=== PATIENT | male | born 1970 | race Caucasian/White ===

== ENCOUNTER 2023-12-10 08:16 | Emergency (ER) | payer OTHER, MEDICAID, SELFPAY ==
[2023-12-10 08:18] VITALS: BP 104/74; PULSE 59; RESP 16; TEMP 36.6; O2SAT 100; BMI 21.1
--- NOTE | 2023-12-10 09:02 | EKG12_ITS ---
Test Reason : CP Blood Pressure : / mmHG Vent. Rate : 053 BPM Atrial Rate : 053 BPM P-R Int : 144 ms QRS Dur : 096 ms QT Int : 426 ms P-R-T Axes : 047 063 072 degrees QTc Int : 399 ms Sinus bradycardia Otherwise normal ECG Confirmed by Peter Ash ([id number]), research editor DARRIAN DON ([id number]) on 12/13/2023 2:01:47 PM Referred By: Confirmed By:Peter Ash
--- NOTE | 2023-12-10 09:15 | RAD_ITS ---
STUDY: X-RAY CHEST REASON FOR EXAM: Male, 53 years old. Chest pain TECHNIQUE: Single AP portable view of the chest. COMPARISON: None. FINDINGS: EKG electrodes are seen. The lungs are clear and expanded. There is no demonstrated pleural abnormality. Normal size heart. Normal mediastinum and kesha. Normal visualized pulmonary arteries. Normal visualized aortic arch and descending thoracic aorta. Normal visualized thoracic spine. Prior fusion in the lower cervical spine. There is no demonstrated abnormality of the visualized soft tissue structures of the upper abdomen. RAD/Chest 1 View (Portable) IMPRESSION: Normal x-ray examination of the chest. Electronically Signed: Eugene Marie MD at 9:42 EDT ,
[2023-12-10 09:17] VITALS: BP 111/79; PULSE 52; RESP 17; O2SAT 97
[2023-12-10 09:17] LABS: Absolute Neutrophil Count 3.7 X10^3/uL (2.0-7.7); Basophil# 0.04 X10^3/uL; Basophil% 0.7 % (0-1); Eosinophil# 0.27 X10^3/uL; Eosinophils% 4.5 % (0-5); Hematocrit 40.9 % (40-54); Hemoglobin 13.9 g/dL (13.0-16.5); Mean Corpuscular Hgb 31.6 pg (27.0-32.0); Mean Platelet Vol. 9.6 fl (6.2-12.0); Monocyte# 0.44 X10^3/uL; Monocyte% 7.3 % (0-10); NRBC Flagged by Analyzer 0 % (0-5); Neutrophil # 3.74 X10^3/uL (2.7-7.7); Neutrophil % 62.3 % (47-70); Platelet Count 218 K/mm3 (150-450); RBC Distribution Width CV 13.6 % (11.6-14.6); RBC Distribution Width SD 46.5 fl (35.1-43.9)
--- NOTE | 2023-12-10 09:26 | ED.VIS.CHEST ---
HPI History of Present Illness Chief Complaint: Chest Pain Informant: patient Onset/Context/Timing Onset: Today and Hours Activity at onset: gradual Timing: Continuous Quality: Positive for Dull Location: Left Chest Current Severity: Mild Maximum Severity: Mild Worsened By: Nothing Relieved By: Nothing Associated Symptoms: Negative for Nausea, Vomiting, Diaphoresis, Dyspnea, Cough, Fever, Lightheadedness, Acid Reflux or Palpitations Narrative Narrative: 53-year-old male history of prior carcinoid and prior DVT for which she was on Coumadin and then was taken off the medication. He was at work today he got left arm numbness and left-sided chest pain this began around 7 AM. The pain is almost resolved. No cardiac history. No history of PE. No recent exertional chest pain. No dyspnea. No hemoptysis. Nothing particular makes the pain better or worse. Prior Similar Symptoms: No Recent Illness/Hospitalization: No CVD Risk Factors: Negative for Hypertension, Diabetes or Hypercholesterolemia PE Risk Factors: Positive for Prior DVT or PE and Cancer; Negative for Recent Travel/Surgery, Recent Immobilization or OCP + Smoking + >/=35 TAD Risk Factors: Negative for Marfan's Syndrome, Hypertension or Family History PFSH PFSH Allergy/AdvReac Type Severity Reaction Status Date / Time No Known Allergies Allergy Verified 12/10/23 08:18 Social History Smoking Status: Current every day smoker tobacco type: cigarettes ROS ROS ED ROS Narrative Denies recent illness. Chest pain today. Review of Systems ROS Unobtainable: Denies due to encephalopathy Constitutional Constitutional ED: Denies chills or fever(s) Eyes Eyes: Reports none ENT ENT ED: Reports ear pain Cardiovascular Cardiovascular: Reports as per HPI and chest pain; Denies palpitations or racing heartbeat Respiratory/Chest Respiratory/Chest: Denies cough, dyspnea or dyspnea on exertion Gastrointestinal Gastrointestinal: Denies abdominal pain, constipation, diarrhea, melena, nausea or vomiting Genitourinary Genitourinary ED: Denies dysuria or hematuria Musculoskeletal Musculoskeletal: Denies arthralgias or back pain Integumentary Denies abscess or Abrasions Neurologic Neurologic: Denies headache(s) Psychiatric Psychiatric: Denies anxiety or depression Endocrine Endocrinology: Denies cold intolerance, heat intolerance, polydipsia, polyphagia or polyuria Hematologic/Lymphatic Hematologic/Lymphatic: Denies easy bleeding, easy bruising or lymphadenopathy Allergic/Immunologic Allergic/Immunologic ED: Denies mouth swelling, tongue swelling or urticaria EXAM Physical Exam Narrative Exam Narrative: Well-appearing 53-year-old male vital signs stable afebrile. Pulse ox 5% on room air no signs hypoxia. No distress. HEENT exam unremarkable. Neck nontender. Lungs clear to auscultation bilateral. Heart regular rhythm no murmur rate about 60. Chest wall and ribs nontender. Abdomen soft nontender. Moving all 4 extremities. Calves are nontender without edema or cords. Equal symmetrical radial pulses. Normal marketing operations consultant strength. Normal range of motion. Nontender. No deformity. Neurologically awake alert no focal motor deficits. Back nontender. Const Vital Signs: 12/10/23 08:18 12/10/23 09:02 12/10/23 09:17 Temperature 97.8 F Temperature Source Temporal Pulse Rate 59 L 52 L Respiratory Rate 16 17 Blood Pressure 104/74 111/79 Blood Pressure Mean 84 89 Pulse Ox 100 97 Oxygen Delivery Method Room Air Room Air Room Air 12/10/23 10:00 12/10/23 11:00 12/10/23 11:00 Temperature Temperature Source Pulse Rate 57 L 51 L 58 L Respiratory Rate 18 17 18 Blood Pressure 108/88 H 133/87 H Blood Pressure Mean 94 102 Pulse Ox 97 97 97 Oxygen Delivery Method Room Air Room Air Room Air Positive well nourished and well developed; Negative for obese, cachectic, contractures or unkempt General Appearance ED: well developed and NAD; Negative for unkempt, cachectic, contractures or pallor Nutritional Appearance: Negative for cachectic or obese HEENT Reports moist mucous membranes; Denies dry mucous membranes normocephalic and atraumatic; Negative for trauma or tenderness Mouth ED: No dry mucous membranes Mouth: No dry mucous membranes Eyes PERRL and EOMs intact bilaterally General Eye ED: Negative for pale conjunctiva, scleral icterus or other Neck no lymphadenopathy, supple and no JVD General: Negative for tenderness Chest Wall inspection of chest normal and palpation of chest normal Chest: Negative for tenderness Resp normal respiratory effort and clear to auscultation bilaterally Effort and Inspection: Negative for respiratory distress Auscultation: Negative for rales, rhonchi, wheezes or diminished lung sounds Cardio regular rate, regular rhythm, S1 normal heart sound, S2 normal heart sound and no murmurs Rate: Negative for bradycardia or tachycardic Rhythm: Negative for abnormal rhythm Peripheral Pulses: pulses 2+ throughout GI normal to inspection, nondistended, normoactive bowel sounds, soft to palpation, non-tender, non-distended and no masses Auscultation: Negative for hyperactive bowel sounds Palpation: Negative for splenomegaly Back/Spine no CVA tenderness and no thoracic nor lumbar tenderness General Back: Negative for CVA tenderness Cervical Spine: Negative for cervical spine tenderness Extremity normal to inspection General Extremety ED: Negative for edema, pulses abnormal or tenderness General Extremity: Negative for edema or pulses abnormal Neuro oriented x3, CN's II-XII intact bilaterally and no sensory deficits noted Sensorium / Orientation: awake, alert, oriented to person, oriented to place and oriented to time; Negative for confused, lethargic or stuporous Motor Exam: strength 5/5 throughout; Negative for general weakness or strength abnormal Psych mental status grossly normal Appearance: Negative for unkempt Attitude: No agitated Mood & Affect: Negative for depressed, anxious or tearful Skin no rashes or lesions noted and no wounds General Skin Exam: Negative for jaundice, pallor or other Rashes: No rashes noted Trauma: Negative for abrasion or laceration MDM MDM MDM Narrative Medical decision making narrative: Well-appearing 53-year-old male with left-sided chest discomfort. Exam benign. Not reproducible. Cardiac workup. His initial EKG is unremarkable. Patient also had a prior history of DVTs with a D-dimer be obtained for possible PE. Repeat exam patient doing well at 11:32 AM. His initial labs, chest x-ray and EKG are unremarkable. Initial troponin is normal. As is his D-dimer. Awaiting his 2-hour troponin. Repeat exam patient doing well at 12:09 PM. He is comfortable being discharged home. Repeat exam is unchanged. We discussed all his test results. He has normal D-dimer and his 2 normal cardiac enzymes. Outpatient follow-up with his primary care physician. If he feels worse or starts developing exertional chest pain he needs to return. History & Record Review Discussion w/independent historian: Patient Additional record(s) reviewed:: Prior inpatient record, Prior outpatient record, Prior ED visit and Prior labs Lab Data Attestation: I reviewed the patient's lab results. Lab results narrative: CBC normal. White count of 6. H&H 13.9 and 40. Platelets 218. Electrolytes unremarkable gap 5. Normal BUN and creatinine. Glucose 92. Initial troponin 6. D-dimer normal at 0.27. Second 2-hour troponins the same and is normal also at 6. Repeat EKG is the same and unchanged. Labs: Laboratory Results - last 24 hr 12/10/23 12/10/23 12/10/23 09:06 09:08 11:07 WBC 6.0 RBC 4.40 L Hgb 13.9 Hct 40.9 MCV 93.0 MCH 31.6 MCHC 34.0 RDW Std Deviation 46.5 H RDW Coeff of Rowena 13.6 Plt Count 218 MPV 9.6 Immature Gran % (Auto) 0.200 Neut % (Auto) 62.3 Lymph % (Auto) 25.0 Trimble % (Auto) 7.3 Eos % (Auto) 4.5 Baso % (Auto) 0.7 Absolute Neuts (auto) 3.7 Absolute Lymphs (auto) 1.50 Nucleated RBC % 0 D-Dimer Quant (PE/DVT) 0.27 Sodium 141 Potassium 3.6 Chloride 103 Carbon Dioxide 33.0 H Anion Gap 5 BUN 8 Creatinine 0.98 Estim Creat Clear Calc 83.81 Est GFR (MDRD) Af Amer 102 Est GFR (MDRD) Non-Af 85 BUN/Creatinine Ratio 8.2 L Glucose 92 Calcium 8.8 Troponin I High Sens 6 6 Radiography Chest X-Ray - ED: 1 View, Read by ED Physician, Heart, Mediastinum, Bony Structures, No Acute Disease and Chronic Changes Diagnostic Testing: Clinical Impression(s) from Imaging Studies Chest X-Ray 12/10/23 09:15 IMPRESSION: Normal x-ray examination of the chest. Electronically Signed: Eugene Marie MD at 9:42 EDT , Chest x-ray, portable, single view, interpreted by myself shows no acute abnormality. Normal cardiac silhouette. Normal lung madden. No pneumothorax. No infiltrate. Rhythm Strip Rhythm Strip: Sinus Rhythm Rate: 53 Ectopy: None EKG Initial EKG: Attestation: I personally reviewed and interpreted this EKG as follows: Interpretation: Sinus Rhythm and Sinus Bradycardia Comments: Sinus bradycardia rate of 53 no acute signs of IA or ischemia. Follow-up EKG: Attestation: I personally reviewed and interpreted this EKG as follows: Interpretation: Sinus Rhythm and No Acute Injury Pattern Comments: Repeat EKG done at 1146 shows a sinus bradycardia rate of 55 unchanged from the prior. Again no signs of IA or ischemia. Discharge Plan Triage Chief Complaint: Chest Pain ED Provider: Stan Ivy Dx/Rx/DC Orders Clinical Impression: History of deep vein thrombosis (DVT) of lower extremity, History of malignant carcinoid tumor, Chest pain Instructions: ED Chest Pain, Uncertain Cause Primary Care Provider: Blayne Bolivar Referrals: Blayne Bolivar MD [Primary Care Provider] - 3-5 Days if not improving Activity Restrictions/Additional Instructions: Your labs, chest x-ray and EKG look good. If you have recurrent chest pain or you are feeling worse return to the emergency department. Follow-up your primary care physician they may want to set you up for an outpatient stress test. Disposition Disposition: Home, Self Care
[2023-12-10 09:35] LABS: Anion Gap 5 (5-15); BUN 8 mg/dL (7-18); BUN/Creat Ratio 8.2 RATIO (10-20); Calcium,Total 8.8 mg/dL (8.5-10.1); Chloride 103 mmol/L (98-107); Creatinine, Serum 0.98 mg/dL (0.70-1.30); EST Glomerular Filtration Rate 85 mL/min (>60); Est Glom Filt Rate - Afr Amer 102 mL/min (>60); Estimated Creatinine Clearance 83.81 ml/min; Glucose 92 mg/dL (74-106); Potassium 3.6 mmol/L (3.5-5.1); Sodium Level 141 mmol/L (136-145); Troponin-I HS (w/2H Reflex) 6 pg/mL (3.0-78.0)
[2023-12-10 09:50] LABS: D-Dimer Quantitative (DVT/PE) 0.27 FEU/ug/m (0.27-0.49)
[2023-12-10 10:00] VITALS: BP 108/88; PULSE 57; RESP 18; O2SAT 97
[2023-12-10 11:00] VITALS: BP 133/87; PULSE 51; PULSE 58; RESP 17; RESP 18; O2SAT 97
[2023-12-10 11:11] LABS: Reflex Troponin-HS? (from REC) Y
--- NOTE | 2023-12-10 11:32 | EKG12_ITS ---
Test Reason : MINH Blood Pressure : / mmHG Vent. Rate : 055 BPM Atrial Rate : 055 BPM P-R Int : 142 ms QRS Dur : 096 ms QT Int : 436 ms P-R-T Axes : 039 064 070 degrees QTc Int : 417 ms Sinus bradycardia Otherwise normal ECG Confirmed by Peter Ash ([id number]), production editor DARRIAN DNO ([id number]) on 12/13/2023 2:01:58 PM Referred By: Confirmed By:Peter Ash
[2023-12-10 11:44] LABS: Troponin-I HS 6 pg/mL (3.0-78.0)
[2023-12-10 12:20] VITALS: BP 137/66; PULSE 73; RESP 15; TEMP 36.2; O2SAT 99
== END 2023-12-10 12:21 | disposition home or self-care (01) ==
PROVIDERS: Emergency Provider Emergency Medicine; PCP Family Medicine; Visit Provider Emergency Medicine
DX: R07.9 Chest pain, unspecified (principal); F17.210 Nicotine dependence, cigarettes, uncomplicated
CPT/HCPCS: 71045; 80048; 84484; 85025; 85379; 93005; 99283; A4216

== ENCOUNTER 2024-02-17 07:16 | Emergency (ER) | payer OTHER, MEDICAID, SELFPAY ==
[2024-02-17 07:16] VITALS: BP 120/82; PULSE 71; RESP 14; TEMP 36.8; O2SAT 100; BMI 20.9
--- NOTE | 2024-02-17 07:40 | RAD_ITS ---
STUDY: X-RAY - CERVICAL SPINE REASON FOR EXAM: Male, 53 years old. Pain, stiffness, numbness LUE, s/p fusion TECHNIQUE: 6 view(s) of the cervical spine were obtained. COMPARISON: None FINDINGS: Normal anterior atlantoaxial articulation. Normal odontoid process. There is straightening of the normal cervical lordosis. The patient is status post anterior fusion with plate and screw fixation device at the C4-C5 and C5-C6 levels with fusion of the disc spaces. Moderate degree of disc space narrowing and spondylosis at the C3-C4 and C6-C7 levels. Normal disc space heights. Normal visualized intervertebral neuroforamina. The soft tissue structures are unremarkable. RAD/Cerv Spine 4 or 5 Views IMPRESSION: Status post multilevel fusion. No significant neural foraminal stenosis seen on this examination. Electronically Signed: Eugene Marie MD at 8:27 EDT ,
--- NOTE | 2024-02-17 07:59 | EDS_ITS ---
HPI History of Present Illness Chief Complaint: Other, Pain/Inj Detail of Chief Complaint: Neck pain with numbness left upper extremity Informant: patient Onset/Context/Timing Onset: Weeks Context: Gradual Onset Timing: Intermittent and Waxes and wanes Quality: Pain left-sided neck with discomfort into the left upper extremity numbness Location: Posterior neck and LUE Current Severity: Mild Maximum Severity: Moderate Worsened by: Repetitive overhead activity and movement of neck Relieved by: Rest and ice Associated Symptoms Associated Symptoms: Numbness of the entire left upper extremity worse with overhead work Narrative Narrative: Patient is a 53-year-old [id number] male. He had fusion of C5 anterior approach many years ago. He was sent in from work because of posterior neck pain predominately left side with pain going into his left upper extremity and numbness of his left upper extremity which is essentially circumferential. He reports slightly increased numbness in the shoulder area. He denies any trauma recently or within the past several months. He denies fever, chills night sweats. He denies ocular, auditory or visual symptoms. He denies problems with dropping things. He does report numbness in his fingers. It involves all his fingers and thumb and not just median nerve distribution. Patient denies cardiac or respiratory symptoms. Prior similar symptoms: No Recent Illness/Hospitalization: No PFSH PFSH Allergy/AdvReac Type Severity Reaction Status Date / Time No Known Allergies Allergy Verified 12/10/23 08:18 Social History Smoking Status: Current every day smoker tobacco type: cigarettes ROS ROS ED Constitutional Constitutional ED: Denies chills, fever(s), subjective, sweats or weight loss Eyes Eyes: Denies blurry vision, change in vision or diplopia ENT ENT ED: Reports other Details: He denies tinnitus or decreased hearing. ; Denies ear pain, rhinorrhea or sore throat Cardiovascular Cardiovascular: Denies chest pain or palpitations Respiratory/Chest Respiratory/Chest: Denies cough, dyspnea or dyspnea on exertion Integumentary Denies rash Neurologic Neurologic: Reports paresthesias and other Details: The numbness is not in a dermatomal distribution. ; Denies headache(s) or weakness Psychiatric Psychiatric: Denies anxiety or depression Hematologic/Lymphatic Hematologic/Lymphatic: Reports systems reviewed and no addt'l complaints, except as documented EXAM Physical Exam Const Vital Signs: 02/17/24 07:16 02/17/24 07:16 Temperature 98.2 F Temperature Source Temporal Pulse Rate 71 Respiratory Rate 14 Respiratory Effort Normal Non-Labored Respiratory Pattern Normal Blood Pressure 120/82 H Blood Pressure Mean 94 Pulse Ox 100 Oxygen Delivery Method Room Air Positive well nourished and well developed Constitutional Narrative: Vital signs noted and are unremarkable. General Appearance ED: well developed and NAD HEENT Reports moist mucous membranes HEENT Narrative: Head is atraumatic, cephalic. Ears normal. Nares patent. Mucosa moist. Eyes PERRL and EOMs intact bilaterally General Eye ED: Negative for pale conjunctiva or scleral icterus Neck no lymphadenopathy, supple and no JVD Neck Narrative: There is no reproducible pain posterior anterior neck. Surgical scar noted. Trachea is midline. There is no dysphonia. He complains of pain with rotation to the left. He also has discomfort with flexion. Resp normal respiratory effort and clear to auscultation bilaterally Cardio regular rate, regular rhythm, S1 normal heart sound, S2 normal heart sound and no murmurs Back/Spine Cervical Spine: Negative for cervical spine tenderness Extremity normal to inspection Extremity Narrative: Radial pulses 2+ and symmetric. Bicep, brachialis and tricep reflex are 2+ and symmetric. Patient reports altered sensation C5-C8 dermatome. Axillary, median, radial and ulnar nerve function intact. Motor strength is 5/5 all major muscle groups upper extremity. Patient complained of numbness with his arm held above his head for more than a minute. Neuro oriented x3, CN's II-XII intact bilaterally and No no sensory deficits noted Sensory Exam: sensory level loss detected Location: C5 (C5-C8) Motor Exam: strength 5/5 throughout Psych mental status grossly normal Skin no rashes or lesions noted, no wounds and skin turgor normal MDM MDM MDM Narrative Medical decision making narrative: This may represent multiple levels of degenerative cervical disc disease. This could represent PAD of the upper extremity. Symptoms are not classic for subclavian steal syndrome. Will start with x-rays of the neck. If these do not show any significant abnormality will refer to his doctor for outpatient workup. In my opinion outpatient workup is acceptable since he has no acute neurov ascular findings or symptoms. Radiography Chest X-Ray - ED: Read by ED Physician (7 view x-ray of the cervical spine reveals fusion of C4-5 and 6 anterior plate. There is degenerative changes at multiple levels. The neuroforamen may be slightly narrowed on multiple levels. There is no acute bony abnormality noted. The prevertebral space is normal.) Treatment and Re-Evaluation :: Patient will need outpatient workup to assess for possible arterial insufficiency versus cervical myopathy. Since he does not have pain/numbness in a dermatomal distribution uncertain if this is cervical more suspicious for arterial. Discharge Plan Triage Chief Complaint: Other, Pain/Inj ED Provider: Jaun Coronado Dx/Rx/DC Orders Clinical Impression: Posterior neck pain, Arm paresthesia, left, Tobacco use Instructions: ED Neck Pain, ED Paraesthesias Primary Care Provider: Blayne Bolivar Referrals: Blayne Bolivar MD [Primary Care Provider] - 5-7 Days Activity Restrictions/Additional Instructions: If you have ibuprofen. take 4 tablets every 8 hours for the next 3 to 5 days. If you have, Aleve take 2 tablets every 12 hours for the next 3 to 5 days. Apply ice to the back of your neck is much as possible Recommend follow-up with Dr. Kaiser Castorena for further workup to investigate possible neck issues versus peripheral arterial disease since your arm becomes numb when it is overhead. Print Language: Kittitian Disposition Disposition: Home, Self Care
[2024-02-17 08:34] VITALS: BP 122/77; PULSE 74; RESP 16; TEMP 36.6; O2SAT 99
== END 2024-02-17 08:35 | disposition home or self-care (01) ==
PROVIDERS: Emergency Provider Emergency Medicine; PCP Family Medicine; Visit Provider Emergency Medicine
DX: M54.2 Cervicalgia (principal); R20.2 Paresthesia of skin; F17.210 Nicotine dependence, cigarettes, uncomplicated
CPT/HCPCS: 72050; 99282

== ENCOUNTER 2025-05-25 10:15 | Emergency (ER) | payer BC, MEDICARE, SELFPAY ==
[2025-05-25 10:16] VITALS: BP 127/76; PULSE 97; RESP 18; TEMP 36.7; O2SAT 100; BMI 21.1
--- NOTE | 2025-05-25 10:46 | CT_ITS ---
PROCEDURE: SPINE LUMBAR WITHOUT CONTRAST 05/25/2025 REASON FOR EXAM: RIGHT LOWER BACK PAIN, HEARD POP TECHNIQUE: Procedure Code: CTSPL Modality: CT Procedure: SPINE LUMBAR WITHOUT CONTRAST Coronal and Sagittal reconstruction series were provided. One or more dose reduction techniques were used (e.g., Automated exposure control, adjustment of the mA and/or kV according to patient size, use of iterative reconstruction technique COMPARISON: None RADIATION DOSE SUMMARY: CTDlvol: 16 mGy DLP: 603 mGycm FINDINGS: Vertebrae: No fracture is seen. Disc space narrowing lower lumbar spine. Vacuum disc phenomenon lumbosacral junction. Alignment: Mild straightening of the lumbar lordosis and mild curvature lower lumbar spine to the right. L1-2: Unremarkable L2-3: Mild thickening of ligamentum flavum. Minimal facet hypertrophy. L3-4: Mild, diffuse disc bulge. Mild facet hypertrophy and thickening of ligamentum flavum. L4-5: Mild loss of disc height is present that is asymmetric to the left related to spinal curvature. Diffuse disc bulge is seen. Central canal is stenotic to 9-10 mm moderate left facet hypertrophy and mild right facet hypertrophy with thickening of ligamentum flavum. Exit foramina are narrowed bilaterally. Correlate with L4 radiculopathy. L5-S1: Vacuum disc phenomenon. Asymmetric disc space narrowing on the right related to spinal curvature. Severe right facet hypertrophy. Mild left facet hypertrophy. Thickening of ligamentum flavum. Exit foraminal narrowing from disc osteophyte and facet disease. Correlate with L5 radiculopathy. Bilateral hip replacements partially imaged. CT/Spine Lumbar without Contrast IMPRESSION: 1. Curvature lumbar spine to the right. Straightening of the lumbar lordosis. 2. Multilevel degenerative change greatest of the lower lumbar spine. Reading Location: [id number]
[2025-05-25] MEDS: Ketorolac 30 MG/ML Syringe IM (10:51)
[2025-05-25] MEDS: Lidocaine 5% Patch 1 PATCH TOPICAL (10:51)
--- NOTE | 2025-05-25 11:54 | EDS_ITS ---
HPI History of Present Illness Chief Complaint: Back Narrative Narrative: Patient is a 55-year-old male presenting to the emergency department for back pain. Patient has a past medical history of cervical arhritis, bowel cancer s/p resection in 2007 in remission. Patient states that he was getting out of his truck this morning when he heard a pop in his right lower back and developed numbness going down the back of his right leg. States he has had sciatica before and this feels similar. He denies any fevers, worsening neck pain than baseline, saddle anesthesia, bowel or bladder incontinence or retention. Denies any weakness of his lower extremities. Denies falling or any traumatic injury to the back prior to this. Denies IV drug use. Did not take anything for pain prior to arrival. [facility] Medical History Cervical vertebral fusion Hip replacement planned Intestinal cancer Sciatic leg pain Home Medications ?Medication ?Instructions ?Recorded ?Last Taken ?Type cyclobenzaprine 5 mg tablet 5 mg PO TID PRN muscle spa sm #20 05/25/25 Unknown Rx tabs levothyroxine 150 mcg tablet 300 mcg PO DAILY 05/25/25 Unknown History lidocaine 5 % topical patch 1 patch topical DAILY #15 ea 05/25/25 Unknown Rx (Lidoderm) prednisone 50 mg tablet 50 mg PO DAILY 5 days #5 tab s 05/25/25 Unknown Rx Allergy/AdvReac Type Severity Reaction Status Date / Time bupropion (From Wellbutrin) AdvReac Intermediate Other Verified 05/25/25 10:23 Social History Smoking Status: Current every day smoker tobacco type: cigarettes ROS ROS ED ROS Narrative see HPI EXAM Physical Exam Narrative Exam Narrative: Vital signs: Reviewed General: Alert and oriented x 3. No acute distress HEENT: Head is normocephalic and atraumatic, sinuses nontender, pupils equal round and reactive. Nares are patent. Oropharynx and throat exams normal. Neck: Supple without lymphadenopathy nontender Cardiovascular: Regular rate and rhythm, no murmurs. No rubs or gallops. Normal S1 and S2 Respiratory: Clear to auscultation bilaterally. No wheezes, rales, rhonchi Abdominal: Soft and nontender. Normal bowel sounds. No guarding or rebound. Nonsurgical abdomen Extremities: No midline cervical, thoracic or lumbar spinal tenderness to palpation. No step-offs or deformities. There is right paraspinal lower lumbar tenderness to palpation. No erythema or rash noted to the back or flank. 5 out of 5 strength in bilateral lower extremities. Sensation intact in bilateral lower extremities. DP and PT pulses intact in bilateral lower extremities. Skin: No rash or redness. Neurological: Cranial nerves II through XII are grossly intact. Normal strength and sensation. Normal cerebellar function The rest of the physical exam is unremarkable Const Vital Signs: 05/25/25 10:16 05/25/25 12:13 Temperature 98.1 F 98.0 F Temperature Source Oral Pulse Rate 97 80 Respiratory Rate 18 16 Blood Pressure 127/76 H 124/81 H Blood Pressure Mean 93 95 Pulse Ox 100 95 Oxygen Delivery Method Room Air MDM MDM MDM Narrative Medical decision making narrative: Patient is a 55-year-old male presenting to the emergency department for right lower back pain radiating down the back of his right leg. He was seen and examined. Vitals are stable. Patient resting bed comfortably in no acute di stress. Given the patient reporting a pop will obtain a CT of the lumbar spine to evaluate for any traumatic findings. Physical exam and history are consistent with lumbar radiculopathy. No red flag back pain signs to suggest spinal cord injury including cauda equina or spinal epidural abscess. Patient given Toradol and Lidoderm patch for symptomatic control. CT lumbar spine shows curvature lum bar spine to the right. Straightening of the lumbar lordosis. Multilevel degenerative change greatest of the lower lumbar spine. Patient was updated on the CT findings. He was prescribed a short course of prednisone for home and prescribed Lidoderm patches as well as Flexeril. Instructed him to use and take these medications. Patient discharged from the Emergency Department. I do not feel that the patient's evaluation reveals any acute reason for admission at this time. I instructed them to either follow-up with their primary care physician or promptly return to the Emergency Department for reevaluation should symptoms worsen or new symptoms develop. I explained what symptoms would indicate the need to return to the emergency department. Shared decision making was used. The patient voiced understanding of the treatment plan and is agreeable with it. Clinical impression lumbar radiculopathy History & Record Review Discussion w/independent historian: Patient Additional record(s) reviewed:: Prior ED visit Lab Data Attestation: I reviewed the patient's lab results. Radiography Diagnostic Testing: Clinical Impression(s) from Imaging Studies Lumbar Spine CT 05/25/25 10:46 IMPRESSION: 1. Curvature lumbar spine to the right. Straightening of the lumbar lordosis. 2. Multilevel degenerative change greatest of the lower lumbar spine. Reading Location: [facility] Discharge Plan Triage Chief Complaint: Back ED Provider: Masha Galindo Dx/Rx/DC Orders Clinical Impression: Lumbar radiculopathy, right Instructions: ED Back and Neck Pain, General, ED Sciatica Prescriptions: New lidocaine [Lidoderm] 5 % adhesive patch,medicated 1 patch topical DAILY Qty: 15 0RF Rx Instructions: leave on most painful area for up to 12 hrs cyclobenzaprine 5 mg tablet 5 mg PO TID PRN (Reason: muscle spasm) Qty: 20 0RF prednisone 50 mg tablet 50 mg PO DAILY 5 Days Qty: 5 0RF No Action levothyroxine 150 mcg tablet 300 mcg PO DAILY Rx Instructions: 300 mcg orally motuwethfr; 150 mcg orally SUSA Stand Alone Forms: ED Work / School Excuse Primary Care Provider: Blayne Bolivar Referrals: Blayne Bolivar MD [Primary Care Provider, Family Practice] - 2 Days Activity Restrictions/Additional Instructions: Take the prednisone daily for 5 days. Take the Flexeril every 8 hours as needed for muscle spasms. Do not take this while driving or operating heavy machinery. It can make you sleepy. Apply the Lidoderm patch to your right lower back and keep it on for 12 hours at a time. Make sure you remove it after this timeframe. For pain I would recommend taking NSAIDs which include Aleve, Advil, ibuprofen or Motrin as prescribed. Your evaluation in the Emergency Department did not reveal any acute reason for admission. However, I want to emphasize that you may be early in the course of a disease process or illness even if it is not present. For this reason you should follow-up within 24 hours for reevaluation with either your primary care physician or if necessary back here in the Emergency Department. You should return to the Emergency Department immediately if your symptoms worsen or new symptoms develop. Print Language: Tamazight Disposition Disposition: Home, Self Care Discharge Date/Time: 05/25/25 12:21
[2025-05-25 12:13] VITALS: BP 124/81; PULSE 80; RESP 16; TEMP 36.7; O2SAT 95
== END 2025-05-25 12:21 | disposition home or self-care (01) ==
PROVIDERS: Emergency Provider Student in an Organized Health Care Education/Training Program; PCP Family Medicine; Visit Provider Student in an Organized Health Care Education/Training Program
DX: M47.26 Other spondylosis with radiculopathy, lumbar region (principal); M43.8X6 Other specified deforming dorsopathies, lumbar region; F17.210 Nicotine dependence, cigarettes, uncomplicated; Z98.1 Arthrodesis status
CPT/HCPCS: 72131; 96372; 99284